=== PATIENT | female | born 1960 | race Two or more races ===

== ENCOUNTER 2018-03-05 14:42 | Inpatient (IN) | payer MEDICAID ==
[~2018-03-05] VITALS: Ht 157.5 cm; Wt 83.6 kg
[~2018-03-05 14:42] MED LIST: ASPI-266 PO; CARI-277 PO; FURO40TA PO; IBUP800T24 PO; INSUINJ SC; LEVEMIR SC; POTA20TA53 PO; TRAM50TA2 PO
[2018-03-05] MEDS ORDERED: SODIUM CHLORIDE 0.9% 1,000 ML IV ONE (17:03)
[2018-03-05] MEDS ORDERED: InsuLIN REG 1unit/0.01ml Soln (100units/ml) IV ONE (17:15)
[2018-03-05] MEDS ORDERED: LORazepam 2MG/ML-1ML VIAL IV ONE (17:15)
[2018-03-05] MEDS ORDERED: KETOROLAC TROMETH 30 MG/ML 1ML VIAL IV ONE (17:45)
[2018-03-05 17:47] LABS: Basophils # (auto) 0 uL; Basophils % (auto) 0.6 % (0.0-2.0); Eosinophils # (auto) 0 uL; Eosinophils % (auto) 0.7 % (0.0-7.0); Hematocrit 42.5 % (36.0-46.0); Hemoglobin 14.4 g/dL (12.2-16.2); Lymphocytes # (auto) 1.7 uL; Lymphocytes % (auto) 32.9 % (10.0-50.0); Mean Corpuscular Hemoglobin 30.6 pg (28.0-32.0); Mean Corpuscular Hgb Conc. 33.9 g/dL (32.0-36.0); Mean Corpuscular Volume 90.2 fL (80.0-100.0); Monocytes # (auto) 0.4 uL; Monocytes % (auto) 8.7 % (0.0-12.0); Neutrophils # (auto) 2.9 uL; Neutrophils % (auto) 57.1 % (37.0-80.0); Nucleated Red Blood Cells % 0.1 %; Platelet Count (auto) 181 10^3/uL (140-450); Red Blood Cells 4.71 10^6/uL (4.0-5.20); Red Cell Distribution Width 12.9 % (11.8-14.3); White Blood Cell 5.1 10^3/uL (4.4-10.8)
[2018-03-05 17:54] LABS: INR 1.05 (0.9-1.15); Partial Thromboplastin Time 25.7 sec (23.78-33.04); Prothrombin Time 11.2 sec (9.27-12.13)
[2018-03-05 18:01] LABS: Albumin 3.2 g/dL (3.4-5.0); Anion Gap 12 (5-15); Blood Urea Nitrogen 10 mg/dL (7-18); Calcium 8.5 mg/dL (8.5-10.1); Carbon Dioxide 23 mmol/L (21-32); Chloride 103 mmol/L (98-107); Glucose 395 mg/dL (74-106); Potassium 3.2 mmol/L (3.5-5.1); Sodium 138 mmol/L (136-145)
[2018-03-05 18:04] LABS: Alanine Aminotransferase 47 U/L (13-56); Aspartate Aminotransferase 21 U/L (15-37); BUN/Creatinine Ratio 13.7; GFR African American 106 mL/min; GFR Non-African American 88 mL/min
[2018-03-05 18:06] LABS: Alkaline Phosphatase 105 U/L (45-117); Bilirubin, Total 0.4 mg/dL (0.2-1.0); Total Protein 6.9 g/dL (6.4-8.2)
[2018-03-05] MEDS ORDERED: NITROGLYCERIN 0.4 MG SL TAB SL PRN (18:15)
[2018-03-05] MEDS ORDERED: DEXTROSE (50%) 50ML SYRG IV PRN (18:15)
[2018-03-05] MEDS ORDERED: POTASSIUM CHL 20 Meq TABLET PO ONE (18:15)
[2018-03-05] MEDS ORDERED: MORPHINE SULFATE 10 MG/ML INJ 1ML SDV IV PRN (18:15)
[2018-03-05] MEDS ORDERED: TEMAZEPAM 15 MG CAP PO PRN (18:15)
[2018-03-05] MEDS: SOD CHL 0.9%/ KCL 20MEQ 1,000 ML IV SCH (19:07)
[2018-03-05] MEDS: PANTOPRAZOLE 40 MG TAB PO SCH (19:07)
[2018-03-05 19:44] LABS: Amylase 30 U/L (25-115); Lipase 107 U/L (73-393)
[2018-03-05] MEDS: ACCU-CHEK COMFORT CURVE STRIP VI SCH (20:00)
[2018-03-05] MEDS: InsuLIN REG 1unit/0.01ml Soln (100units/ml) SC SCH (20:00)
[2018-03-05] MEDS: MORPHINE SULFATE 10 MG/ML INJ 1ML SDV IV PRN (21:47)
[2018-03-05] MEDS: PROMETHAZINE HCL 25 MG/ML 1ML IV PRN (21:47)
[2018-03-05 22:00] VITALS: BP 122/78
[2018-03-05 22:34] LABS: Folate (Folic Acid) 11.79 ng/mL (5.38-24)
[2018-03-06] MEDS: InsuLIN REG 1unit/0.01ml Soln (100units/ml) SC SCH ×6 (00:33→21:25)
[2018-03-06 01:09] VITALS: BP 122/78
[2018-03-06] MEDS: MORPHINE SULFATE 10 MG/ML INJ 1ML SDV IV PRN ×5 (03:36→21:26)
[2018-03-06] MEDS: PROMETHAZINE HCL 25 MG/ML 1ML IV PRN ×5 (03:36→21:25)
[2018-03-06] MEDS: ACCU-CHEK COMFORT CURVE STRIP VI SCH ×6 (04:00→20:00)
[2018-03-06] MEDS: SOD CHL 0.9%/ KCL 20MEQ 1,000 ML IV SCH ×2 (04:06→12:18)
[2018-03-06 05:00] VITALS: BP 121/74
[2018-03-06 07:36] LABS: Cholesterol 160 mg/dL (< 200); HDL Cholesterol 40 mg/dL (40-59); LDL Cholesterol 97 mg/dL (< 100); Triglycerides 211 mg/dL (< 150)
[2018-03-06 09:00] VITALS: BP 126/76
[2018-03-06] MEDS: PANTOPRAZOLE 40 MG TAB PO SCH (09:07)
[2018-03-06] MEDS ORDERED: cefTRIAXone 1GM/10ml IVPUSH 10 ML IV ONE (12:00)
[2018-03-06 13:00] VITALS: BP 124/67
[2018-03-06 16:20] VITALS: BP 118/72
[2018-03-06] MEDS: LORazepam 0.5 MG TAB PO PRN (17:52)
[2018-03-06 22:00] VITALS: BP 113/77
[2018-03-06] MEDS: INSULIN LANTUS (GLARGINE) 1 /0.01ml (100units/ml) SC SCH (22:24)
[2018-03-06] MEDS ORDERED: MORPHINE SULFATE 4 MG/ML SYR/VIAL ONE (23:12)
[2018-03-07] MEDS: LORazepam 0.5 MG TAB PO PRN (00:51)
[2018-03-07] MEDS: InsuLIN REG 1unit/0.01ml Soln (100units/ml) SC SCH ×4 (00:52→18:47)
[2018-03-07] MEDS: MORPHINE SULFATE 10 MG/ML INJ 1ML SDV IV PRN ×2 (01:20→05:32)
[2018-03-07] MEDS: SOD CHL 0.9%/ KCL 20MEQ 1,000 ML IV SCH ×2 (01:20→11:10)
[2018-03-07] MEDS: PROMETHAZINE HCL 25 MG/ML 1ML IV PRN ×5 (01:20→22:22)
[2018-03-07] MEDS: ACCU-CHEK COMFORT CURVE STRIP VI SCH ×4 (04:18→18:47)
[2018-03-07 05:00] VITALS: BP 128/73
[2018-03-07 06:09] LABS: Basophils # (auto) 0 uL; Basophils % (auto) 0.6 % (0.0-2.0); Eosinophils # (auto) 0.1 uL; Eosinophils % (auto) 1.7 % (0.0-7.0); Hematocrit 41.1 % (36.0-46.0); Hemoglobin 13.9 g/dL (12.2-16.2); Lymphocytes # (auto) 2.2 uL; Lymphocytes % (auto) 39.6 % (10.0-50.0); Mean Corpuscular Hemoglobin 31.1 pg (28.0-32.0); Mean Corpuscular Hgb Conc. 33.8 g/dL (32.0-36.0); Mean Corpuscular Volume 91.9 fL (80.0-100.0); Monocytes # (auto) 0.4 uL; Monocytes % (auto) 7.5 % (0.0-12.0); Neutrophils # (auto) 2.8 uL; Neutrophils % (auto) 50.6 % (37.0-80.0); Nucleated Red Blood Cells % 0.3 %; Platelet Count (auto) 164 10^3/uL (140-450); Red Blood Cells 4.47 10^6/uL (4.0-5.20); Red Cell Distribution Width 13.3 % (11.8-14.3); White Blood Cell 5.5 10^3/uL (4.4-10.8)
[2018-03-07 06:27] LABS: BUN/Creatinine Ratio 17.5; Calcium 8.3 mg/dL (8.5-10.1); Potassium 3.7 mmol/L (3.5-5.1)
[2018-03-07 06:35] LABS: Amphetamine Screen, Urine NEGATIVE (NEGATIVE); Barbiturate Scree,Urine NEGATIVE (NEGATIVE); Benzodiazephine Screen, Urine NEGATIVE (NEGATIVE); Cannabinoid Screen, Urine NEGATIVE (NEGATIVE); Cocaine Screen, Urine NEGATIVE (NEGATIVE); Opiate Scree,Urine POSITIVE (NEGATIVE); Phencyclidine Screen, Urine NEGATIVE (NEGATIVE)
[2018-03-07 07:05] LABS: Urine Bacteria FEW /hpf (None Seen); Urine Blood Negative /uL (Negative); Urine Budding Yeast MANY /hpf (None Seen); Urine Mucus FEW (None Seen); Urine Specific Gravity 1.012 (1.001-1.035); Urine WBC 7 /hpf (0 - 5)
[2018-03-07 09:00] VITALS: BP 132/70
[2018-03-07] MEDS ORDERED: MORPHINE SULFATE 4 MG/ML SYR/VIAL IV PRN ×2 (10:45)
[2018-03-07] MEDS: PANTOPRAZOLE 40 MG TAB PO SCH (11:10)
[2018-03-07] MEDS: cefTRIAXone 1GM/10ml IVPUSH 10 ML IV SCH (11:10)
[2018-03-07] MEDS: traMADol HCL 50 MG TAB PO PRN ×3 (11:11→23:17)
[2018-03-07 13:00] VITALS: BP 141/87
[2018-03-07 17:00] VITALS: BP 140/76
[2018-03-07 22:05] VITALS: BP 121/71
[2018-03-07] MEDS: INSULIN LANTUS (GLARGINE) 1 /0.01ml (100units/ml) SC SCH (22:22)
[2018-03-08] MEDS: InsuLIN REG 1unit/0.01ml Soln (100units/ml) SC SCH ×4 (00:33→18:00)
[2018-03-08] MEDS: SOD CHL 0.9%/ KCL 20MEQ 1,000 ML IV SCH ×2 (04:27→13:15)
[2018-03-08] MEDS: traMADol HCL 50 MG TAB PO PRN ×4 (04:28→20:53)
[2018-03-08] MEDS: PROMETHAZINE HCL 25 MG/ML 1ML IV PRN ×5 (04:40→21:20)
[2018-03-08] MEDS: LORazepam 0.5 MG TAB PO PRN (04:40)
[2018-03-08 05:00] VITALS: BP 121/84
[2018-03-08] MEDS: ACCU-CHEK COMFORT CURVE STRIP VI SCH ×4 (06:04→18:34)
[2018-03-08 08:34] VITALS: BP 156/96
[2018-03-08] MEDS: cefTRIAXone 1GM/10ml IVPUSH 10 ML IV SCH (09:10)
[2018-03-08] MEDS: PANTOPRAZOLE 40 MG TAB PO SCH (09:10)
[2018-03-08] MEDS: MORPHINE SULFATE 10 MG/5 ML ORAL SOLN PO PRN ×4 (10:02→22:53)
[2018-03-08] MEDS ORDERED: GOLYTELY 4L KIT PO ONE (12:00)
[2018-03-08 12:46] VITALS: BP 156/84
[2018-03-08 17:00] VITALS: BP 117/84
[2018-03-08] MEDS: INSULIN LANTUS (GLARGINE) 1 /0.01ml (100units/ml) SC SCH (21:20)
[2018-03-08 22:00] VITALS: BP 113/75
[2018-03-09] MEDS: SOD CHL 0.9%/ KCL 20MEQ 1,000 ML IV SCH (00:31)
[2018-03-09] MEDS: InsuLIN REG 1unit/0.01ml Soln (100units/ml) SC SCH ×2 (00:51→06:00)
[2018-03-09] MEDS: PROMETHAZINE HCL 25 MG/ML 1ML IV PRN ×2 (02:25→06:59)
[2018-03-09] MEDS: MORPHINE SULFATE 10 MG/5 ML ORAL SOLN PO PRN (04:52)
[2018-03-09 04:53] VITALS: BP 133/77
[2018-03-09] MEDS: ACCU-CHEK COMFORT CURVE STRIP VI SCH ×2 (06:00)
[2018-03-09] MEDS: traMADol HCL 50 MG TAB PO PRN (06:59)
[2018-03-09 08:36] VITALS: BP 96/67
[2018-03-09] MEDS: cefTRIAXone 1GM/10ml IVPUSH 10 ML IV SCH (09:04)
[2018-03-09] MEDS: PANTOPRAZOLE 40 MG TAB PO SCH (09:07)
== END 2018-03-09 11:44 | disposition left against medical advice (07) | DRG 241 ==
LOC: ER 14:42 → TELE 14:43 → TELE-CENTR 21:20
PROVIDERS: ADMIT Internal Medicine; ATTEND Internal Medicine
DX: K29.71 Gastritis, unspecified, with bleeding (principal); I11.0 Hypertensive heart disease with heart failure; E11.65 Type 2 diabetes mellitus with hyperglycemia; F11.20 Opioid dependence, uncomplicated; E66.01 Morbid (severe) obesity due to excess calories; I50.9 Heart failure, unspecified; E87.6 Hypokalemia; M51.36 Other intervertebral disc degeneration, lumbar region; N20.0 Calculus of kidney; G89.29 Other chronic pain; I25.10 Atherosclerotic heart disease of native coronary artery without angina pectoris; F41.9 Anxiety disorder, unspecified; G47.00 Insomnia, unspecified; K59.00 Constipation, unspecified; I70.0 Atherosclerosis of aorta; K57.30 Diverticulosis of large intestine without perforation or abscess without bleeding; M43.16 Spondylolisthesis, lumbar region; Z53.29 Procedure and treatment not carried out because of patient's decision for other reasons; Z53.21 Procedure and treatment not carried out due to patient leaving prior to being seen by health care provider; I25.2 Old myocardial infarction; Z91.19 Patient's noncompliance with other medical treatment and regimen; Z90.710 Acquired absence of both cervix and uterus; Z88.6 Allergy status to analgesic agent; Z88.5 Allergy status to narcotic agent; Z88.8 Allergy status to other drugs, medicaments and biological substances; Z88.0 Allergy status to penicillin; Z79.4 Long term (current) use of insulin; Z79.899 Other long term (current) drug therapy; Z85.3 Personal history of malignant neoplasm of breast; Z85.41 Personal history of malignant neoplasm of cervix uteri; Z85.42 Personal history of malignant neoplasm of other parts of uterus; Z85.43 Personal history of malignant neoplasm of ovary; Z85.828 Personal history of other malignant neoplasm of skin; Z86.73 Personal history of transient ischemic attack (TIA), and cerebral infarction without residual deficits; Z82.49 Family history of ischemic heart disease and other diseases of the circulatory system; Z83.3 Family history of diabetes mellitus; Z68.33 Body mass index [BMI] 33.0-33.9, adult
CPT/HCPCS: 36415; 71045; 74176; 80048; 80053; 80061; 80307; 81001; 82010; 82150; 82607; 82746; 82962; 83036; 83690; 83880; 84484; 85025; 85610; 85652; 85730; 87086; 96374; 96375; J1642; J1815